=== PATIENT | male | born 1940 | race Caucasian/White ===

== ENCOUNTER 2016-11-15 12:55 | Observation (INO) | payer MEDICARE, SELFPAY ==
[~2016-11-15] VITALS: Ht 175.3 cm; Wt 106.6 kg
[2016-11-15] MEDS ORDERED: LIPITOR40 MG PO (13:01)
[2016-11-15] MEDS ORDERED: APRESOLINE10 MG PO (13:02)
[2016-11-15] MEDS ORDERED: NORVASC10 MG PO (13:02)
[2016-11-15] MEDS ORDERED: SYNTHROID25 MCG PO (13:03)
[2016-11-15] MEDS ORDERED: VITAMIN D31000 UNI1 PO (13:03)
[2016-11-15] MEDS ORDERED: VITAMIN B122500 MCG PO (13:04)
[2016-11-16] MEDS ORDERED: PROVENTIL2.5 MG/3 M INH (13:28)
[2016-11-16] MEDS ORDERED: TYLENOL325 MG PO (13:29)
[2016-11-16] MEDS ORDERED: AUGMENTIN 500 M1 TAB PO (13:30)
[2016-11-16] MEDS ORDERED: MUCINEX600 MG PO (13:31)
[2016-11-16] MEDS ORDERED: AZITHROMYCIN500 MG PO (13:31)
== END 2016-11-16 14:05 | disposition short-term general hospital (02) ==
LOC: OBS 12:55
PROVIDERS: ADMIT Family Medicine
DX: J18.9 Pneumonia, unspecified organism (principal); H91.90 Unspecified hearing loss, unspecified ear; E78.5 Hyperlipidemia, unspecified; I10 Essential (primary) hypertension; E03.9 Hypothyroidism, unspecified; F17.200 Nicotine dependence, unspecified, uncomplicated; D64.9 Anemia, unspecified; E53.8 Deficiency of other specified B group vitamins; E55.9 Vitamin D deficiency, unspecified; Z79.52 Long term (current) use of systemic steroids; Z79.899 Other long term (current) drug therapy; Z23 Encounter for immunization
CPT/HCPCS: G0008; G0009; J0295; J0456; J1650